=== PATIENT | male | born 1995 | race Caucasian/White ===

== ENCOUNTER 2019-09-29 13:24 | Inpatient (IN) ==
[2019-09-29] MEDS ORDERED: DIPHTHERIA/TETANUS/PERTUSSIS 0.5 ML SYR/VIAL IM ONE (13:52)
[2019-09-29] MEDS ORDERED: LORazepam 1 MG TAB SL STA ×2 (14:14→20:05)
[2019-09-29] MEDS ORDERED: LORazepam 1 MG TAB ONE ×2 (14:16→20:02)
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
[2019-09-29 14:23] LABS: Basophils # (auto) 0.05 K/uL (0-0.2); Basophils % (auto) 0.7 %; Eosinophils # (auto) 0.11 K/uL (0-0.5); Eosinophils % (auto) 1.5 %; Hematocrit (blood only) 48.3 % (42-52); Hemoglobin 16.5 g/dL (14.0-18.0); Immature Granulocytes # (auto) 0.05 K/uL (0.00-0.02); Immature Granulocytes % (auto) 0.7 %; Lymphocytes # (auto) 2.51 K/uL (1.2-3.4); Lymphocytes % (auto) 33.4 %; Mean Corpuscular Hemoglobin 31.9 pg (25-34); Mean Corpuscular Hgb Conc 34.2 g/dL (32-36); Mean Corpuscular Volume 93.4 fL (80-100); Mean Platelet Volume 10.3 fL (7.4-10.4); Monocytes # (auto) 0.71 K/uL (0.11-0.59); Monocytes % (auto) 9.4 %; Neutrophils # (auto) 4.09 K/uL (1.4-6.5); Neutrophils % (auto) 54.3 %; Platelet Count 292 K/uL (130-400); RDW Coefficient of Variation 13.5 % (11.5-14.5); Red Blood Count 5.17 M/uL (4.7-6.1); White Blood Count 7.52 K/uL (4.8-10.8)
[2019-09-29 14:24] LABS: Appearance Urine Clear (Clear); Bilirubin Urine Negative (Negative); Blood Urine Trace (Negative); Color Urine Yellow; Glucose Urine UA Negative (Negative); Ketones Urine Negative (Negative); Leukocyte Esterase Urine Negative (Negative); Nitrite Urine Negative (Negative); Protein Urine Negative (Negative); Specific Gravity Urine 1.006 (1.000-1.030); Urobilinogen Urine Negative (Negative)
[2019-09-29 14:35] LABS: Bacteria Urine Automated Negative (Negative); Cast Urine Automated 0 /lpf (0-5); Epithelial Cell Urine Auto 0-5 /lpf (0-5); RBC Urine Automated 0-4 /hpf (0-4); WBC Urine Automated 0 /hpf (0-5)
[2019-09-29 14:39] LABS: Albumin Level 3.4 gm/dl (3.4-5.0); BUN Creatinine Ratio 9.1 (10-20); Calcium 8.6 mg/dl (8.5-10.1); Creatinine Clr Calc Pharmacy 158.1 ml/min; Est GFR (African American) 142.9; Est GFR (Non-African American) 123.3; Potassium 3.6 mmol/L (3.5-5.1)
[2019-09-29 14:50] LABS: Amphetamines+Metham, Urine Pos (Neg); Barbiturates, Urine Neg (Neg); Benzodiazepine, Urine Neg (Neg); Cocaine, Urine Neg (Neg); MDMA (Ecstacy), Urine Neg (Neg); Methadone, Urine Neg (Neg); Opiate, Urine Neg (Neg); Phencyclidine, Urine Neg (Neg)
[2019-09-29 14:50] LABS: Albumin Globulin Ratio 0.9 (0.9-2); Bilirubin,Total 0.5 mg/dl (0.2-1); Globulin 3.9 gm/dl (2.5-4.0); Thyroid Stimulating Hormone 0.123 uIu/ml (0.300-4.500); Total Protein 7.3 gm/dl (6.4-8.2)
[2019-09-29 15:03] LABS: T4 Free Thyroxine 1.16 ng/dl (0.8-1.6)
[2019-09-29 15:28] LABS: Acetaminophen < 2 ug/ml (10-30); Salicylate 2.2 mg/dl (2.8-20)
[2019-09-29] MEDS ORDERED: LORazepam 2 MG/4 ML VIAL IV STA (20:44)
[2019-09-29] MEDS ORDERED: MULTI-VITAMIN INFUSION 10 ML, THIAMINE HCL 100 MG, FOLIC ACID 1 MG in SODIUM CHLORIDE 0... IV ONE (20:44)
[2019-09-29] MEDS ORDERED: cloNIDine HCL 0.3 MG/24 HR TRANSDERM SYS TD SCH (20:45)
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
[2019-09-29] MEDS ORDERED: ONDANSETRON INJ 2 MG/ML 2 ML VIAL IV PRN (23:01)
[2019-09-29] MEDS ORDERED: LORazepam 3 MG/6 ML VIAL IV PRN (23:01)
[2019-09-29] MEDS ORDERED: ATIVAN IV ALCOHOL WITHDRAWL IV PRN (23:01)
[2019-09-29 23:30] LABS: Magnesium 2.2 mg/dl (1.8-2.4); Phosphorus 3.9 mg/dl (2.5-4.9)
[2019-09-29] MEDS: LORazepam 1 MG/2 ML VIAL IV PRN (23:48)
[2019-09-29] MEDS: CHECK CLONIDINE PATCH PLACEMENT SCH (23:49)
[2019-09-30] MEDS: NICOTINE 21 MG/24 HR TDSY TD SCH ×2 (00:11→08:46)
--- NOTE | 2019-09-30 00:32 | Emergency Department Note ---
ED Visit Note This is a 24-year-old male who presents emergency department intoxicated. I received this patient in signout. History and physical verified by me. The patient has been sobering up however has become increasingly agitated and I am concerned with his tachycardia that he is going into acute alcohol withdrawal. On physical examination he is shaking and pacing. For this reason an IV was established, the patient was given 2 mg of Ativan IV. He was started on a banana bag. He was also given a clonidine patch. I did discuss the case with the hospitalist service who did agree to admit the patient. Patient was in agreement with the treatment plan. I have personally spent greater than 30 minutes of critical care time in the direct management of this patient. This includes bedside care, interpretation of diagnostic studies, and testing, discussion with consultants, patient, and family members, and other required patient management activities. This 30 minutes is in excess of all separately billable procedures. . : Depression Qualifiers: Depression Type: unspecified Qualified Code(s): F32.9 - Major depressive disorder, single episode, unspecified Alcohol intoxication Qualifiers: Complication of substance-induced condition: uncomplicated Qualified Code(s): F10.920 - Alcohol use, unspecified with intoxication, uncomplicated Abrasion of multiple sites of lower limb Qualifiers: Encounter type: initial encounter Laterality: unspecified laterality Qualified Code(s): S80.819A - Abrasion, unspecified lower leg, initial encounter
[2019-09-30] MEDS: THIAMINE HCL 100 MG TAB PO SCH (08:46)
[2019-09-30] MEDS: FOLIC ACID 1 MG TAB PO SCH (08:46)
[2019-09-30] MEDS: CHECK CLONIDINE PATCH PLACEMENT SCH ×2 (08:47→15:40)
[2019-09-30 09:27] LABS: Hepatitis B Surface Antigen Neg (Neg)
[2019-09-30 09:56] LABS: Hepatitis C IgG 13Yrs+Old_Rflx Neg (Neg)
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
[2019-09-30] MEDS ORDERED: GABAPENTIN 800MG ALCOHOL WITHDRAWAL LOAD PO STA (15:54)
[2019-09-30] MEDS ORDERED: GABAPENTIN 400 MG CAP PO ONE (15:54)
[2019-09-30] MEDS ORDERED: GABAPENTIN 1200MG LOADING DOSE PO STA (16:10)
--- NOTE | 2019-09-30 17:23 | Hospitalist Progress Note ---
Date of Service September 30, 2019 Assessment & Plan (1) Alcohol intoxication: 24yo C male with history of EtoH-ism, prior withdrawal in the past with seizures presenting in EtoH withdrawal. Patient has been administered Ativan in the ER with improvement in tremulousness as well as a banana bag. Unable to clearly quantify amount of EtOH he consumes daily - last drink was immediately prior to arrival. EtOH level 283 on arrival, now 63.2 -continue on PCU -Seizure precautions - stop Clonidine patch as it is making his sweat all the time start Gabapentin withdrawal protocol with 1200mg given today taper over next several days Ativan PRN -Thiamine 100mg po daily -Folic acid 1mg po daily -Psychiatry consultation appreciated: patient does not meet for 302 criteria, no suicidal ideation at this time his self harm behavior is more related to substance abuse patient would benefit most from substance abuse rehab alcohol intoxication resolved, but is at risk for going into withdrawal (2) Depression: Patient reports longstanding history of depression, possibly since age 10. Currently not on any medication. +SI in the past with previous attempt. Currently denies SI/HI -continue 1:1 observation tonight, may consider stopping tomorrow based on his mood and behavior - not on any anti-depressants, psychiatry does not recommend starting any medications until he is sober and his mental health can be accurately assessed (3) Poly-drug misuser: Patient admits to using multiple recreational drugs to include methamphetamine, poppers, GHB, marijuana and crack. He has been injecting methamphetamine and Suboxone -Psychiatry consultation as above. needs referral to rehabilitation facility HIV and hepatitis negative, discussed that he should get rechecked in the future due to his extremely high risk behavior Subjective patient stable today, ambulating in the room, eating well (really hungry) appreciate psychiatry consultation, no criteria for involuntary commitment and patient feels he really needs drug and alcohol treatment discussed with him that his HIV, hepatitis B/C testing was negative discussed his recent drug and alcohol abuse to get better idea of how much he was using admitted to coming to [place] a few weeks ago, got connected with a methamphetamine dealer was using methamphetamine daily up until 5-6 days ago also, recently he was using intravenous Suboxone that he go from a friend he drinks heavily, typically needs to drink three times as much as normal when on Meth because it has less effect yesterday prior to admission he drank a 5th of bourbon and 12 bottles of Victor typically he will have a 5th of vodka and several 40oz beers a day he confirms that he has been through rehab multiple times in the past confirms that he just [facility] [place] for substance possession he has little to no social support, little to no money he wants to go into drug and alcohol rehab, has reasonable concerns about funds to pay for it discussed using Gabapentin for withdrawal symptoms, he agrees with that plan, says he has taken it in the past Review of Systems Review of Systems: All systems reviewed & are unremarkable except as noted in HPI & below Neurologic: + tremor(s) Psychiatric: + depression, + hopelessness, + anhedonia, + abnormal sleep pattern and + anxiety; no suicidal ideation, no homicidal ideation, no paranoia, no hallucinations and no visual hallucinations Physical Exam Constitutional: WD/WN, vitals as above Eyes: PERRL, conjunctivae normal, anicteric sclerae ENMT: external ear and nose normal, oropharynx normal Neck: trachea midline, no thyromegaly Respiratory: normal respiratory effort, lungs clear to auscultation Cardiovascular: RRR, no murmur, no edema Gastrointestinal (Abdomen): normal bowel sounds, soft, nontender, no hepatosplenomegaly Musculoskeletal: no cyanosis or clubbing, extremities motor strength 5/5 Skin: no rashes, warm and dry Neurologic: patellar DTR's 2+ bilat, sensation intact and PERRL, EOMI, accommodation nl, no face palsy, no dysarthria Psychiatric: Orientation: alert, oriented x 3 and cooperative Apperance: appropriately dressed, appropriately groomed and appeared stated age Eye Contact: good eye contact Motor Behavior: + tremor Affect: + depressed affect and + tearful affect Mood: + depressed mood Thought Process: linear/logical thought process Suicidal Thoughts: denies suicidal thoughts Homicidal Thoughts: denies homicidal thoughts Hallucinations: no auditory hallucinations and no visual hallucinations Cognition: recent memory grossly intact Estimated Intelligence: average estimated intelligence Insight: good insight Judgement: + limited judgement Lymphatic: no cervical or axillary lymphadenopathy Results & Data Vital Signs (Past 12 Hours) Vital Signs Temp Pulse Pulse Resp BP Pulse Ox 09/30/19 15:43 96 H 09/30/19 14:55 36.8 C 90 18 144/97 H 98 09/30/19 11:54 36.4 C L 92 H 18 139/92 95 09/30/19 08:44 36.4 C L 76 18 108/72 09/30/19 07:25 76 09/30/19 06:04 36.8 C 92 H 16 135/55 L 96 Laboratory Results Laboratory Results - last 24 hr 09/29/19 09/29/19 09/29/19 14:09 14:11 20:55 Phosphorus 3.9 Magnesium 2.2 Folate Ethyl Alcohol mg/dL 63.2 H RPR C.trachomatis RNA Pending Hepatitis A IgM Ab Hep Bs Antigen Hep B Core IgM Ab Hepatitis C Antibody HIV 1&2 Ab/P24 Ag 4thGn N.gonorrhoeae RNA Pending Specimen Comment Pending 09/30/19 09/30/19 09/30/19 05:45 05:45 05:45 Phosphorus Magnesium Folate Ethyl Alcohol mg/dL RPR C.trachomatis RNA Hepatitis A IgM Ab Pending Hep Bs Antigen Neg Hep B Core IgM Ab Pending Hepatitis C Antibody Neg HIV 1&2 Ab/P24 Ag 4thGn Neg N.gonorrhoeae RNA Specimen Comment 09/30/19 09/30/19 05:45 05:45 Phosphorus Magnesium Folate 11.40 Ethyl Alcohol mg/dL RPR Pending C.trachomatis RNA Hepatitis A IgM Ab Hep Bs Antigen Hep B Core IgM Ab Hepatitis C Antibody HIV 1&2 Ab/P24 Ag 4thGn N.gonorrhoeae RNA Specimen Comment Medications Administered Current Inpatient Medications Clonidine HCl ([id number]-Rla-0 0.3mg/24hr) 1 patch TD CQWK [facility] Stop: 10/29/19 20:44 Last Admin: 09/29/19 20:57 Dose: 1 patch Documented by: Folic Acid (Folvite) 1 mg PO QAM [facility] Stop: 10/30/19 08:59 Last Admin: 09/30/19 08:46 Dose: 1 mg Documented by: Gabapentin (Neurontin) 600 mg PO Q6H [facility] Stop: 10/01/19 04:01 Gabapentin (Neurontin) 600 mg PO Q8H [facility] Stop: 10/02/19 04:01 Gabapentin (Neurontin) 600 mg PO Q12H [facility] Stop: 10/03/19 04:01 Gabapentin (Neurontin) 600 mg PO Q24H [facility] Stop: 10/04/19 04:01 Lorazepam (Ativan) 1 mg in 2 mls @ 2 mls/min IV UD PRN; Protocol PRN Reason: EtOH Withdrawl AWSS Score 6,7 Stop: 10/29/19 23:00 Last Admin: 09/29/19 23:48 Dose: 2 mls/min Documented by: Lorazepam (Ativan) 2 mg in 4 mls @ 4 mls/min IV UD PRN; Protocol PRN Reason: EtOH Withdrawl AWSS Score 8,9 Stop: 10/29/19 23:00 Lorazepam (Ativan) 3 mg in 6 mls @ 4 mls/min IV ONCE PRN; Protocol PRN Reason: EtOH Withdrawl AWSS Score >=10 Stop: 10/29/19 23:00 Miscellaneous (Remove Clonidine Patch) 1 ea N/A CQWK [facility] Stop: 11/05/19 20:44 Miscellaneous (Check Clonidine Patch) 1 ea N/A QS [facility] Stop: 10/30/19 00:00 Last Admin: 09/30/19 15:40 Dose: Not Given Documented by: Miscellaneous (Ativan Iv Alcohol Withdrawl) 1 ea IV UD PRN; Protocol PRN Reason: EtoH Withdrawal AWSS 6-10+ Stop: 10/29/19 23:00 Miscellaneous (Remove Nicoderm Patch) 1 ea N/A DAILY@0859 [facility] Stop: 10/30/19 08:58 Last Admin: 09/30/19 08:46 Dose: 1 ea Documented by: Nicotine ([facility]oderm Cq) [facility]: 10/30/19 08:59 Last Admin: 09/30/19 08:46 Dose: 21 mg Documented by: Ondansetron HCl (Zofran) 4 mg IV Q6H PRN PRN Reason: Nausea Stop: 10/29/19 23:00 Thiamine HCl (Vitamin B-1) 100 mg PO QAM [facility] Stop: 10/30/19 08:59 Last Admin: 09/30/19 08:46 Dose: 100 mg Documented by: PG Care Time/CCT Total # of Minutes Spent Total Time Spent: 40 Total Time Spent with Patient: Total time spent is greater than 50% in coordination of care (as documented) at patient's floor/unit and/or counseling patient: (1) Alcohol intoxication Complication of substance-induced condition: uncomplicated Qualified Code(s): F10.920 - Alcohol use, unspecified with intoxication, uncomplicated (2) Depression Depression Type: unspecified Qualified Code(s): F32.9 - Major depressive disorder, single episode, unspecified
[2019-09-30] MEDS: GABAPENTIN 600MG Q6H DOSE PO SCH (21:17)
[2019-09-30] MEDS ORDERED: GABAPENTIN 400 MG CAP PO SCH (22:00)
[2019-10-01] MEDS: GABAPENTIN 600MG Q6H DOSE PO SCH (05:51)
[2019-10-01] MEDS: NICOTINE 21 MG/24 HR TDSY TD SCH (08:21)
[2019-10-01] MEDS: FOLIC ACID 1 MG TAB PO SCH (08:23)
[2019-10-01] MEDS: THIAMINE HCL 100 MG TAB PO SCH (08:23)
[2019-10-01] MEDS: LORazepam 2 MG/4 ML VIAL IV PRN ×2 (08:32→14:40)
[2019-10-01 10:56] LABS: Hepatitis A Antibody IgM NON-REACTIVE (NON-REACTIVE); Hepatitis B Core Antibody IgM NON-REACTIVE (NON-REACTIVE)
[2019-10-01] MEDS: GABAPENTIN 600MG Q8H DOSE PO SCH ×2 (12:00→20:02)
[2019-10-01 12:30] LABS: Chlamydia Trach RNA NOT DETECTED (NOT DETECTED); GC (Neis gonorrhoeae) RNA NOT DETECTED (NOT DETECTED)
[2019-10-01] MEDS ORDERED: GABAPENTIN 400 MG CAP PO SCH (14:00)
--- NOTE | 2019-10-01 17:26 | Hospitalist Progress Note ---
Date of Service October 01, 2019 Assessment & Plan (1) Alcohol intoxication: 24yo C male with history of alcoholism, prior withdrawal in the past with seizures presenting with alcohol level of 238, then down to 63 high risk for withdrawal with seizures as he does not want to drink any more continue on PCU for close monitoring as he is exhibiting more signs of withdrawal today (anxiety, panic attacks, tremors, diaphoresis) -Seizure precautions - continue Gabapentin withdrawal protocol taper over next several days Ativan PRN (requiring 2mg IV as his AWSS scores have been 8, 9) -Thiamine 100mg po daily -Folic acid 1mg po daily -Psychiatry consultation appreciated: patient does not meet for 302 criteria, no suicidal ideation at this time his self harm behavior is more related to substance abuse patient would benefit most from substance abuse rehab alcohol intoxication resolved, but is going into active withdrawal discussed with patient, feel he would benefit from several days in the hospital to get him through withdrawal if he would be discharged now he would certainly go back to drinking and using drugs (2) Depression: Patient reports longstanding history of depression, possibly since age 10. Currently not on any medication. +SI in the past with previous attempt. 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 He has been injecting methamphetamine and Suboxone -Psychiatry consultation as above. needs referral to rehabilitation facility HIV and hepatitis negative, RPR negative, GC via urine negative Subjective more tremors today, more anxiety, experiencing some panic attacks very tearful at times requesting new IV site if possible as his right hand is bothering him he was happy to shower this morning he asked how long he would be here discussed that he was just showing signs of withdrawal, that it may take him days to feel stable he knows that if he left the hospital now he would turn to alcohol and drugs to make him feel better he c/o some dysuria, checked GC urine, negative RPR, hepatitis A and core hep C all negative, updated him on results Review of Systems Review of Systems: All systems reviewed & are unremarkable except as noted in HPI & below Constitutional: + fatigue and + weakness; no fever Respiratory: no cough and no dyspnea Cardiovascular: no chest pain and no edema Gastrointestinal: no abdominal pain, no nausea, no vomiting, no constipation and no diarrhea/loose stools Psychiatric: + depression, + hopelessness, + abnormal sleep pattern and + anxiety; no paranoia and no hallucinations Physical Exam Constitutional: WD/WN, vitals as above Eyes: PERRL, conjunctivae normal, anicteric sclerae ENMT: external ear and nose normal, oropharynx normal Neck: trachea midline, no thyromegaly Respiratory: normal respiratory effort, lungs clear to auscultation Cardiovascular: RRR, no murmur, no edema Gastrointestinal (Abdomen): normal bowel sounds, soft, nontender, no hepatosplenomegaly Musculoskeletal: no cyanosis or clubbing, extremities motor strength 5/5 Skin: no rashes, warm and dry Neurologic: patellar DTR's 2+ bilat, sensation intact and PERRL, EOMI, accommodation nl, no face palsy, no dysarthria Psychiatric: Orientation: alert, oriented x 3 and cooperative Apperance: appropriately dressed, appropriately groomed and appeared stated age Eye Contact: good eye contact Motor Behavior: + tremor Affect: + depressed a ffect and + tearful affect Mood: + depressed mood Thought Process: linear/logical thought process Suicidal Thoughts: denies suicidal thoughts Homicidal Thoughts: denies homicidal thoughts Hallucinations: no auditory hallucinations and no visual hallucinations Cognition: recent memory grossly intact Estimated Intelligence: average estimated intelligence Insight: good insight Lymphatic: no cervical or axillary lymphadenopathy Results & Data Vital Signs (Past 12 Hours) Vital Signs Temp Pulse Resp BP Pulse Ox 10/01/19 14:50 36.5 C 101 H 21 141/89 H 98 10/01/19 11:33 36.5 C 93 H 20 146/83 H 98 10/01/19 08:00 36.5 C 89 18 134/89 98 Laboratory Results Laboratory Results - last 24 hr 09/29/19 09/30/19 09/30/19 14:11 05:45 05:45 RPR Nonreactive C.trachomatis RNA NOT DETECTED Hepatitis A IgM Ab NON-REACTIVE Hep B Core IgM Ab NON-REACTIVE N.gonorrhoeae RNA NOT DETECTED Specimen Comment SEE NOTE Medications Administered Current Inpatient Medications Folic Acid (Folvite) 1 mg PO QAM [facility] Stop: 10/30/19 08:59 Last Admin: 10/01/19 08:23 Dose: 1 mg Documented by: Gabapentin (Neurontin) 600 mg PO Q8H [facility] Stop: 10/02/19 04:01 Last Admin: 10/01/19 12:00 Dose: 600 mg Documented by: Gabapentin (Neurontin) 600 mg PO Q12H [facility] Stop: 10/03/19 04:01 Gabapentin (Neurontin) 600 mg PO Q24H [facility] Stop: 10/04/19 04:01 Lorazepam (Ativan) 1 mg in 2 mls @ 2 mls/min IV UD PRN; Protocol PRN Reason: EtOH Withdrawl AWSS Score 6,7 Stop: 10/29/19 23:00 Last Admin: 09/29/19 23:48 Dose: 2 mls/min Documented by: Lorazepam (Ativan) 2 mg in 4 mls @ 4 mls/min IV UD PRN; Protocol PRN Reason: EtOH Withdrawl AWSS Score 8,9 Stop: 10/29/19 23:00 Last Admin: 10/01/19 14:40 Dose: 4 mls/min Documented by: Lorazepam (Ativan) 3 mg in 6 mls @ 4 mls/min IV ONCE PRN; Protocol PRN Reason: EtOH Withdrawl AWSS Score >=10 Stop: 10/29/19 23:00 Miscellaneous (Remove Clonidine Patch) 1 ea N/A CQWK [facility] Stop: 11/05/19 20:44 Miscellaneous (Ativan Iv Alcohol Withdrawl) 1 ea IV UD PRN; Protocol PRN Reason: EtoH Withdrawal AWSS 6-10+ Stop: 10/29/19 23:00 Miscellaneous (Remove Nicoderm Patch) 1 ea N/A DAILY@0859 [facility] Stop: 10/30/19 08:58 Last Admin: 10/01/19 08:22 Dose: 1 ea Documented by: Nicotine (Nicoderm Cq) 21 mg TD [facility] Stop: 10/30/19 08:59 Last Admin: 10/01/19 08:21 Dose: 21 mg Documented by: Ondansetron HCl (Zofran) 4 mg IV Q6H PRN PRN Reason: Nausea Stop: 10/29/19 23:00 Thiamine HCl (Vitamin B-1) [facility] Stop: 10/30/19 08:59 Last Admin: 10/01/19 08:23 Dose: 100 mg Documented by: PG Care Time/CCT Total # of Minutes Spent Total Time Spent: 40 Total Time Spent with Patient: Total time spent is greater than 50% in coordination of care (as documented) at patient's floor/unit and/or counseling patient: (1) Alcohol intoxication Complication of substance-induced condition: uncomplicated Qualified Code(s): F10.920 - Alcohol use, unspecified with intoxication, uncomplicated (2) Depression Depression Type: unspecified Qualified Code(s): F32.9 - Major depressive disorder, single episode, unspecified
[2019-10-01] MEDS ORDERED: POLYETHYLENE (MIRALAX) 17 GM PACK PO PRN (20:06)
[2019-10-01] MEDS ORDERED: NEOMYCIN/POLYMYX/BACITR OINT 15 GM TUBE EXT PRN (23:28)
[2019-10-02] MEDS ORDERED: GABAPENTIN 600 MG TAB PO SCH
[2019-10-02] MEDS: LORazepam 1 MG/2 ML VIAL IV PRN (01:28)
[2019-10-02] MEDS: GABAPENTIN 600MG Q8H DOSE PO SCH (03:04)
[2019-10-02 06:21] LABS: Amphetamine Urine, Confirm NEGATIVE ng/mL (<250); Marijuana Quant, GCMS Urine 38 ng/mL (<5); Methamphetamine, Ur Confirm 1110 ng/mL (<250)
[2019-10-02] MEDS: NICOTINE 21 MG/24 HR TDSY TD SCH (09:11)
[2019-10-02] MEDS: THIAMINE HCL 100 MG TAB PO SCH (09:11)
[2019-10-02] MEDS: FOLIC ACID 1 MG TAB PO SCH (09:11)
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
[2019-10-02] MEDS ORDERED: GABAPENTIN 600MG Q12H DOSE PO SCH (16:00)
[2019-10-02] MEDS ORDERED: GABAPENTIN 400 MG CAP PO SCH (18:00)
[2019-10-04] MEDS ORDERED: GABAPENTIN 600MG X1 DOSE PO SCH ×2 (04:00→16:00)
[2019-10-04] MEDS ORDERED: GABAPENTIN 400 MG CAP PO SCH (06:00)
== END 2019-10-02 10:26 | disposition home or self-care (01) | DRG 897 ==
LOC: ED 13:24 → 2S 21:45 → SUATTDRO 21:45 → 2S 22:47